=== PATIENT | female | born 1990 | race Caucasian/White ===

== ENCOUNTER 2016-06-17 08:30 | Emergency (ER) | payer OTHER ==
[2016-06-17 08:46] VITALS: RESP 16
[2016-06-17] MEDS ORDERED: NS 1,000 ML IV ONE ×2 (08:50→09:47)
[2016-06-17] MEDS ORDERED: ONDANSETRON 4 MG/2 ML VIAL IVP ONE (08:50)
[2016-06-17 08:51] VITALS: TEMP 98.4
--- NOTE | 2016-06-17 09:10 | UCPHY ---
H & P Time Seen by Provider: 06/17/16 08:47 Patient Type: Established HPI/ROS: This patient presents with a chief complaint of vomiting which occurred last night. She estimates she has vomited 20-25 times. She took her temperature during the night in was 100.6 she describes upper abdominal discomfort which she attributes to the frequent vomiting but has had no diarrhea, headache or myalgias. She is 15 weeks in earlier in her she had difficulty with vomiting associated with the but this was improving and she was vomiting 2-3 times per day recently. REVIEW OF SYSTEMS: Constitutional: Fever, feels dehydrated, fatigue Eyes: No complaints ENT: Denies sore throat nasal congestion and cough. Respiratory: No cough, no shortness of breath Cardiac: No chest pain Gastrointestinal: See above Genitourinary: Not addressed Musculoskeletal: No myalgias Skin: No rash Neurological: No headache Smoking Status: Never smoked Physical Exam: GENERAL: Well-appearing, well-nourished and in no acute distress. HEAD: Atraumatic, normocephalic. EYES: Pupils equal round and reactive to light, extraocular movements intact, sclera anicteric, conjunctiva are normal. ENT: TMs normal, nares patent, oropharynx clear without exudates. Slightly dry mucous membranes. NECK: Normal range of motion, supple without lymphadenopathy or JVD. LUNGS: No respiratory distress HEART: Regular rate and rhythm ABDOMEN: Soft with mild diffuse tenderness in all 4 quadrants. The abdomen is completely soft without guarding or rebound. Bowel sounds are normally active and they are slightly distension presumably secondary to the . EXTREMITIES: Normal range of motion, NEUROLOGICAL: Cranial nerves II through XII grossly intact. Normal speech, normal gait. PSYCH: Normal mood, normal affect. SKIN: Warm, dry, normal turgor, no visible rashes or lesions. Constitutional: Initial Vital Signs Temperature (C) 36.9 C 06/17/16 08:43 Heart Rate 122 H 06/17/16 08:43 Respiratory Rate 16 06/17/16 08:43 Blood Pressure 123/80 H 06/17/16 08:43 O2 Sat (%) 97 06/17/16 08:43 O2 Delivery Mode Room Air Allergies/Adverse Reactions: No Known Allergies Allergy (Verified 06/17/16 08:46) Home Medications: Medication Instructions Recorded NK [No Known Home Meds] 06/17/16 Medical Decision Making ED Course/Re-evaluation: The patient was hydrated with 2 L of normal saline and given 4 mg of Zofran intravenously. On discharge is patient was feeling much improved. Differential Diagnosis: It is not clear whether the vomiting in this case is related to her or perhaps acute gastritis. I find nothing else to explain her symptoms and do not believe that she has any acute intra-abdominal pathology needing further testing or imaging. - Data Points Medications Given: Discontinued Medications Sodium Chloride (Ns) 1,000 mls @ 0 mls/hr IV ONCE ONE PRN Reason: Wide Open Stop: 06/17/16 08:51 Last Admin: 06/17/16 08:59 Dose: 1,000 mls Sodium Chloride (Ns) 1,000 mls @ 0 mls/hr IV ONCE ONE PRN Reason: Wide Open Stop: 06/17/16 09:48 Last Admin: 06/17/16 09:48 Dose: 1,000 mls Ondansetron HCl (Zofran) 4 mg IVP EDNOW ONE Stop: 06/17/16 08:51 Last Admin: 06/17/16 08:59 Dose: 4 mg Departure - Departure Disposition: Home, Routine, Self-Care Clinical Impression: Nausea and vomiting during , Dehydration Condition: Good Instructions: Nausea and Vomiting in (ED), Dehydration (ED) Additional Instructions: If symptoms persist more than 24 hours you should be re-evaluated. Do not eat any solids for 6-8 hours but keep yourself well hydrated. - PQRS PQRS Measurement: Not applicable
[2016-06-17 10:23] VITALS: BP 106/73; PULSE 108; O2SAT 100
== END 2016-06-17 10:36 | disposition home or self-care (01) ==
LOC: CED 08:30
DX: O21.9 Vomiting of pregnancy, unspecified (principal); Z3A.15 15 weeks gestation of pregnancy
CPT/HCPCS: 96361-PO; 96374-PO; 99214-PO; G0463-PO; J2405